=== PATIENT | male | born 1950 | race Asian ===

== ENCOUNTER 2020-04-04 12:03 | Emergency (ER) | payer MEDICARE, BC ==
[~2020-04-04] VITALS: Ht 180.3 cm; Wt 84.0 kg
--- NOTE | 2020-04-04 13:14 | NUR ---
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
--- NOTE | 2020-04-04 13:44 | NUR ---
pt in bed states his bp was high at home and can't see his primary care doc until august,
[2020-04-04 14:29] LABS: BASOPHILS % (AUTO) 0 % (0-1); EOSINOPHILS % (AUTO) 1 % (1-7); LYMPHOCYTES % (AUTO) 16 % (22-44); MEAN CORPUSCULAR HEMOGLOBIN 32.9 pg (27.5-34.5); MEAN CORPUSCULAR HGB CONC 34.4 g/dL (33.2-36.2); MEAN PLATELET VOLUME 7.2 fL (7.4-10.4); MONOCYTES % (AUTO) 8 % (2-9); NEUTROPHILS % (AUTO) 74 % (42-75); PLATELET COUNT 205 x10^3/uL (130-400); RED BLOOD COUNT 4.67 x10^6/uL (4.38-5.82); RED CELL DISTRIBUTION WIDTH 12.9 % (9.4-14.8)
[2020-04-04] MEDS ORDERED: HYDROCHLOROTHIAZIDE 25 MG TABLET PO ONE (14:30)
[2020-04-04 14:32] LABS: MD NO
[2020-04-04 14:38] LABS: ALBUMIN 3.8 g/dL (3.4-5.0); ANION GAP 6 mmol/L (5-15); CALCIUM 9.1 mg/dL (8.5-10.1); CHLORIDE 105 mmol/L (98-107); CREATININE 1.23 mg/dL (0.7-1.3)
--- NOTE | 2020-04-04 14:51 | NUR ---
pt in bed admin bp med. vss
[2020-04-04 15:27] LABS: MICROSCOPIC NOT IND
--- NOTE | 2020-04-04 15:42 | NUR ---
pt in bed no distress
[2020-04-04 16:30] VITALS: BP 163/100
== END 2020-04-04 16:32 | disposition home or self-care (01) ==
LOC: ED 14:48
DX: I10 Essential (primary) hypertension (principal); R94.31 Abnormal electrocardiogram [ECG] [EKG]
CPT/HCPCS: 36415; 80048; 81003; 82040; 85025; 93005; 99285

== ENCOUNTER 2020-07-05 14:58 | Outpatient (CLI) | payer MEDICARE, BC | END 2020-07-05 23:59 | disposition home or self-care (01) | LOC: RAD 14:58 | PROVIDERS: ATTEND Family Medicine | DX: K76.0 Fatty (change of) liver, not elsewhere classified (principal); N28.1 Cyst of kidney, acquired; K82.0 Obstruction of gallbladder | CPT/HCPCS: 76700 ==